=== PATIENT | male | born 1965 | race Hispanic/Latino ===

== ENCOUNTER 2021-08-08 13:23 | Emergency (ER) | payer BC ==
[~2021-08-08] VITALS: Ht 172.7 cm; Wt 89.4 kg
[2021-08-08 13:28] VITALS: BP 109/73
[2021-08-08] MEDS ORDERED: AMOX1TAB16 PO (13:58)
[2021-08-08] MEDS ORDERED: ONDANSETRON ODT 4MG TAB SL ONE (14:00)
[2021-08-08] MEDS ORDERED: IBUPROFEN 600 MG TABLET PO ONE (14:00)
[2021-08-08] MEDS ORDERED: AMOX/CLAV 875/125MG TAB PO ONE (14:00)
[2021-08-08 14:26] LABS: BASOPHILS % (AUTO) 0.2 % (0.0-5.0); EOSINOPHILS % (AUTO) 0.2 % (0.0-8.0); HEMATOCRIT 43.4 % (42-54); LYMPHOCYTES % (AUTO) 14.9 % (21.0-51.0); MEAN CORPUSCULAR HEMOGLOBIN 28.8 pg (27.0-33.0); MEAN CORPUSCULAR HGB CONC 32.9 g/dL (32.0-36.0); MEAN CORPUSCULAR VOLUME 87.3 fL (79-99); MONOCYTES % (AUTO) 6.1 % (3.0-13.0); NEUTROPHILS % (AUTO) 78.2 % (40.0-77.0); PLATELET COUNT (AUTO) 189 K/uL (130-400); RED BLOOD CELL COUNT(AUTO) 4.97 MIL/uL (4.50-6.20); RED CELL DISTRIBUTION WIDTH 12.7 % (11.0-15.5); WHITE BLOOD COUNT (AUTO) 12.8 K/uL (4.8-10.8)
== END 2021-08-08 15:11 | disposition home or self-care (01) ==
LOC: EDH 13:23
DX: S60.410A Abrasion of right index finger, initial encounter (principal); S61.032A Puncture wound without foreign body of left thumb without damage to nail, initial encounter; Z88.8 Allergy status to other drugs, medicaments and biological substances; W55.01XA Bitten by cat, initial encounter; Y93.89 Activity, other specified; Y92.89 Other specified places as the place of occurrence of the external cause; Y99.8 Other external cause status
CPT/HCPCS: 36415; 73140; 85025